=== PATIENT | male | born 1990 | race African-American/Black ===

== ENCOUNTER 2020-12-25 11:50 | Emergency (ER) | payer OTHER ==
[~2020-12-25] VITALS: Ht 185.4 cm; Wt 113.4 kg
[2020-12-25 12:39] LABS: URINE BILIRUBIN NEGATIVE (Negative); URINE BLOOD NEGATIVE (Negative); URINE CLARITY CLEAR; URINE COLOR YELLOW; URINE GLUCOSE-RANDOM* NEGATIVE (Negative); URINE KETONES NEGATIVE (Negative); URINE LEUKOCYTES-REFLEX NEGATIVE (Negative); URINE NITRITE-REFLEX NEGATIVE (Negative); URINE PROTEIN (DIPSTICK) TRACE (Negative); URINE SPECIFIC GRAVITY >= 1.030 (1.005-1.035); URINE UROBILINOGEN 0.2 E.U./dl (0.2-1.0)
[2020-12-25 13:12] LABS: ABSOLUTE NEUTROPHILS 4.4 thou/uL (1.4-8.2); BASOPHILS 1.1 % (0.0-2.0); EOSINOPHILS 1.8 % (0.0-3.0); HEMOGLOBIN 14.4 gm/dL (14.0-18.0); LYMPHOCYTES 24.6 % (24.0-44.0); MCH 32.7 pg (26.0-34.0); MCHC 33.4 g/dL (28.0-37.0); MCV 97.8 fL (80.0-100.0); MONOCYTES 6.4 % (1.0-8.0); PLATELET COUNT 242 thou/uL (150-400); POLYS 66.1 % (36.0-66.0); RDW 14.1 % (10.5-14.5); WBC 6.7 thou/uL (4.0-11.0)
[2020-12-25 13:22] LABS: CALCIUM 8.8 mg/dL (8.5-10.1)
[2020-12-25 13:28] LABS: ALBUMIN 3.7 g/dL (3.4-5.0); TOTAL BILIRUBIN 0.5 mg/dL (0.2-1.0)
[2020-12-25] MEDS ORDERED: IBU600 MG PO (14:15)
[2020-12-25] MEDS ORDERED: DICLOFENAC SOD100 G1 TOP (14:15)
[2020-12-25] MEDS ORDERED: FLEXERIL PO (14:15)
[2020-12-25 14:16] VITALS: BP 122/58
--- NOTE | 2020-12-26 11:36 | EKG ---
[address] [address] ELECTROCARDIOGRAM REPORT Name: ASIYA MOCTEZUMA Room #: DEP KINDRA Pat#: [id number] Admission: 12/25/20 Attend Phys: Discharge: 12/25/20 Date of : [birth year] Report #: [id number] [facility] ED Test Date: 2020-12-25 Test Time: 13:13:31 Pat Name: ASIYA MOCTEZUMA Department: Room: Gender: Fundraising Director: edwina : 1990 Requested By: Danitza Pineda Order Number: [id number] MD: Feng Anders Measurements Intervals [place] Rate: 65 P: 22 IA: 174 QRS: 56 QRSD: 87 T: 18 QT: 362 QTc: 377 Interpretive Statements Sinus arrhythmia Normal tracing No previous ECG available for comparison Electronically Signed On 12-26-2020 11:36:35 CDT by Feng Anders [email or web address] <ELECTRONICALLY SIGNED> By: Feng Anders MD, [facility] 12/26/20 1136 1313 1313 Feng Anders MD, FACC /EPI
== END 2020-12-25 14:16 | disposition home or self-care (01) ==
LOC: ER 11:50
PROVIDERS: Physician Assistant
DX: S16.1XXA Strain of muscle, fascia and tendon at neck level, initial encounter (principal); S29.012A Strain of muscle and tendon of back wall of thorax, initial encounter; S20.212A Contusion of left front wall of thorax, initial encounter; Z88.0 Allergy status to penicillin; V43.52XA Car driver injured in collision with other type car in traffic accident, initial encounter; Y93.I9 Activity, other involving external motion; Y92.89 Other specified places as the place of occurrence of the external cause; Y99.8 Other external cause status